=== PATIENT | male | born 1990 | race Caucasian/White ===

== ENCOUNTER 2021-07-03 22:45 | Emergency (ER) | payer SELFPAY ==
[2021-07-04] MEDS ORDERED: HYDROCODON-ACE1 EAC2 PO (01:35)
== END 2021-07-04 01:46 | disposition home or self-care (01) ==
LOC: FER 22:45
DX: S20.212A Contusion of left front wall of thorax, initial encounter (principal); S10.93XA Contusion of unspecified part of neck, initial encounter; F17.210 Nicotine dependence, cigarettes, uncomplicated; V49.40XA Driver injured in collision with unspecified motor vehicles in traffic accident, initial encounter; Y92.410 Unspecified street and highway as the place of occurrence of the external cause; W22.11XA Striking against or struck by driver side automobile airbag, initial encounter
CPT/HCPCS: 71260; 73030; J1885; Q9967